=== PATIENT | female | born 1955 ===

== ENCOUNTER 2019-11-01 09:32 | Outpatient (CLI) | payer BC ==
--- NOTE | 2019-11-01 10:57 | ULT ---
BILATERAL RENAL ULTRASOUND: Date: 11/01/2019 HISTORY: Patient has a history of hydronephrosis. FINDINGS: Real-time imaging of the right and left kidneys were performed. The right kidney measures 10.8 cm in length. It shows some right-sided hydronephrosis with mainly a very prominent renal pelvis. There is suggestion that there is some cortical thinning. There is indistinctness to the lower pole which may represent scarring. Kidney contour is lobulated. Similar contour changes are seen within the left kidney measuring 10.9 cm. It also shows a lobulated contour. No obstruction of the left kidney. The bladder has a Hughes catheter in place. Bilateral uret eral jets are identified. IMPRESSION: Some moderate dilatation of the right collecting system, or specifically prominence to the right freddy l pelvis. Lobulated contour to both kidneys as discussed above. POS: [facility]
== END 2019-11-01 09:33 | disposition home or self-care (01) ==
LOC: ULT 09:32
PROVIDERS: ATTEND Urology
DX: N13.39 Other hydronephrosis (principal)
CPT/HCPCS: 76770